=== PATIENT | female | born 1965 | race Caucasian/White ===

== ENCOUNTER 2018-07-31 12:54 | Emergency (ER) | payer OTHER ==
[2018-07-31] MEDS: LORAZEPAM 1 MG TAB PO (13:20)
== END 2018-07-31 13:51 | disposition home or self-care (01) ==
LOC: E/R 13:51
DX: F41.9 Anxiety disorder, unspecified (principal); Z87.891 Personal history of nicotine dependence
CPT/HCPCS: 99283